=== PATIENT | female | born 1945 | race African-American/Black ===

== ENCOUNTER → 2024-02-07 07:50 | Outpatient (REF) | payer MEDICARE, BC, SELFPAY | LOC: HWRAD 07:50 | PROVIDERS: ATTENDING PHYSICIAN Internal Medicine | DX: Z78.0 Asymptomatic menopausal state (principal) | CPT/HCPCS: 77080 ==

== ENCOUNTER → 2024-03-14 08:51 | Outpatient (REF) | payer MEDICARE, BC, SELFPAY | LOC: HWWDC 08:51 | PROVIDERS: ATTENDING PHYSICIAN Internal Medicine | DX: Z12.31 Encounter for screening mammogram for malignant neoplasm of breast (principal) | CPT/HCPCS: 77063; 77067 ==